=== PATIENT | female | born 1950 | race Caucasian/White ===

== ENCOUNTER 2024-09-30 21:41 | Emergency (ER) | payer MEDICARE, OTHER, SELFPAY ==
[2024-09-30 21:46] VITALS: BP 183/79
[2024-09-30 21:47] VITALS: BP 183/79
[2024-09-30 22:00] VITALS: BP 156/59
[2024-09-30 22:17] LABS: % Basophils 0.8 % (0-2); % Eosinophils 1.2 % (0-6); % Immature Granulocytes 0.2 % (0-0.5); % Lymphocytes 30.5 % (20.5-51.1); % Monocytes 10.4 % (1.7-9.3); % Neutrophils 56.9 % (42.2-75.2); Absolute Basophils 0.1 10^3/uL (0-0.2); Absolute Eosinophils 0.1 10^3/uL (0-0.7); Absolute Lymphocytes 1.9 10^3/uL (1.2-3.4); Absolute Monocytes 0.6 10^3/uL (0.1-0.6); Absolute Neutrophils 3.5 10^3/uL (1.4-6.5); Hematocrit 39.3 % (37.0-47.0); Hemoglobin 14.4 g/dL (12.0-16.0); Mean Corp Hgb Conc. 36.6 g/dL (33.0-37.0); Mean Corpuscular Volume 92.9 fL (81.0-99.0); Nucleated Red Blood Cells % 0 %; Platelet Count 147 10^3/uL (130-400); Red Blood Cell Count 4.23 10^6/uL (4.20-5.40); Red Cell Dist. Width 13.6 % (11.5-14.5); White Blood Cell Count 6.1 10^3/uL (4.8-10.8)
[2024-09-30 22:23] LABS: INR 1.08; PT 14.5 Sec (11.4-14.6)
[2024-09-30 22:24] LABS: APTT 31.7 Sec (23.4-35.0)
[2024-09-30 22:28] LABS: ALT (SGPT) 24 U/L (0-35); AST (SGOT) 30 U/L (14-36); Acetaminophen 81 ug/ml (10-30); Albumin 4.1 g/dl (3.5-5.0); Alkaline Phosphatase 30 U/L (38-126); Blood Urea Nitrogen 27 mg/dl (7-17); Calcium 10.7 mg/dl (8.4-10.2); Carbon Dioxide 23 mmol/L (22-30); Chloride 103 mmol/L (98-107); Glucose 139 mg/dl (70-99); Potassium 4.4 mmol/L (3.5-5.1); Sodium 136 mmol/L (135-145); Total Bilirubin 0.5 mg/dl (0.2-1.3); Total Protein 6.1 g/dl (6.3-8.2); eGFR 53.06
[2024-09-30 22:30] LABS: Alcohol None Detected
[2024-09-30 22:44] LABS: Salicylate < 1.0 mg/dl (2.0-20.0)
--- NOTE | 2024-09-30 22:58 | ED.GENMED ---
History of Present Illness
General
Chief Complaint: Overdose Intentional
Source: patient
Time Seen by Provider: 09/30/24 22:42
History of Present Illness
History of Present Illness:
74-year-old female presents to the emergency room after a suicide attempt. Patient states she took 20 tablets of 500 mg acetaminophen at 7 PM. She also took 1 tablet of her Risperdal and 1 tablet of lorazepam. Patient states this was a attempt to
kill herself. She is frustrated that her guardian has reduced her weekly allowance of velásquez. Patient denies any alcohol ingestion. Patient states she did have a previous suicide attempt many years ago. She did have a inpatient psychiatric
hospitalization about 7 or 8 years ago at some facility near [place]. Patient has some mild nausea. She did believe that this ingestion would be fatal. Patient actually called her visiting nurse to let her know that she might be when she
comes tomorrow so as to prevent her from being startled.
Past History
Past History
ED Past Medical History: Asthma, GERD, HTN, Hypercholesterolemia, NIDDM, Hypothyroidism and Other (Depression, R shoulder rotator cuff tare, Hiatel hernia, Kidney stones, Over active bladder, mild dementia, fractures, urinary tract infections,
kidney stones numbness and tingling of the arms and legs.)
ED Past Surgical History: Orthopedic (R total knee replacement, tibial plateau fracture, pins and screws for a scaphoid fracture.) and Other (Perforated bowel with resection.)
Social History
Tobacco: Non-smoker
Alcohol: None
Personal: Single
Living: alone
Employment: Disabled
Family History
Family History: Unable to obtain
Phy Exam
Physical Exam
Physical Exam:
General: Awake, Alert, Oriented X3. No acute distress.
Vitals: unremarkable
Head: Atraumatic
Eyes: Pupils equal, EOMI
Throat: Airway intact, no exudates
Neck: Trachea midline
Lungs: Clear and equal b/l
Heart: Regular rate, no murmurs
Abd: Soft, Nontender, No pulsatile mass
Neuro: Cranial nerves intact, muscle strength equal bilaterally, cerebellar exam normal
Skin: Warm, dry, no rash
Extremities: pulses equal b/l, no edema
Course
Orders/Labs/Results
Orders:
Orders
09/30/24 21:46
Electrocardiogram (*1) Urgent
Reason for Study: Other
Other Reason for Exam: overdose
EKG- Treatment ONCE
09/30/24 21:53
1:1 Observation - Suicide/ Violent Behavior As Directed
Crisis Consult Urgent
Reason for Consult: overdose
09/30/24 22:00
Acetaminophen Urgent
Alcohol Urgent
Complete Blood Count/With Diff Urgent
Comprehensive Metabolic Panel Urgent
PTT Urgent
Prothrombin Time Urgent
Salicylate Urgent
09/30/24 23:09
Tylenol [Acetaminophen] Urgent
Abnormal Lab Results
09/30/24 09/30/24
22:00 23:09
MCH 34.0 H pg
(27.0-31.0)
MPV 11.0 H fL
(7.4-10.4)
Monocytes % 10.4 H %
(1.7-9.3)
BUN 27 H mg/dl
(7-17)
Creatinine 1.1 H mg/dL
(0.6-1.0)
Glucose 139 H mg/dl
(70-99)
Calcium 10.7 H mg/dl
(8.4-10.2)
Alkaline Phosphatase 30 L U/L
(38-126)
Total Protein 6.1 L g/dl
(6.3-8.2)
Salicylates < 1.0 L mg/dl
(2.0-20.0)
Acetaminophen 81 H ug/ml 72 H ug/ml
(10-30) (10-30)
09/30/24 22:00
09/30/24 22:00
Vital Signs
Initial and Last Documented VS:
Initial Vital Signs
Pulse Resp BP Pulse Ox
77 19 183/79 96
09/30/24 21:46 09/30/24 21:46 09/30/24 21:46 09/30/24 21:46
Last Documented Vital Signs
Temp Pulse Resp BP Pulse Ox
98.6 F 70 18 130/68 97
09/30/24 21:47 09/30/24 23:45 09/30/24 23:45 09/30/24 23:00 10/01/24 00:15
MDM/Problems Addressed
Differential Diagnosis Includes:
Acetaminophen overdose, suicide attempt, depression, polypharmacy overdose
MDM/Problems Addressed:
Repeat Tylenol level has declined. She has not improved the treatment threshold. Otherwise she looks quite stable medically. She is clear for psychiatric treatment. Patient will be at 302.
*Pulse Oximetry
Patient hypoxic: no
*EKG
Interpreted by ED Provider?: Yes
Heart Rate: 70
Rate: normal
Rhythm: sinus
QRS Pattern: right bundle branch block and other (Left anterior fascicular block)
Ischemia: non-specific ST changes
*[employer] Service Technician Interpretation
Rate: normal
Interpretation: normal
Rhythm: sinus
*Critical Care Note
Total Time (30-74mins, 75-104mins- exclusive of procedures): Not Applicable
ED Attending Note
-
Portions of this chart may have been created with voice recognition software.� Occasional wrong word or��sound alike� substitutions may have occurred due to the inherent limitations of voice recognition software.
Discharge Plan
Departure
Patient Disposition: [facility]
Date of Disposition: 10/01/24
Time of Disposition: 01:46
Patient Status:: 302
Condition: Serious
Discharge Problem:
Suicide attempt, Intentional overdose, Acetaminophen overdose
Prescriptions:
No Action
ascorbic acid (vitamin C) [Vitamin C] 500 MG tablet
1,000 mg PO DAILY
multivitamin with folic acid [Tab-A-Lalit] 1 TABLET tablet
1 tab PO DAILY
metformin 500 MG tablet
500 mg PO BID
cholecalciferol (vitamin D3) [Vitamin D3] 1,000 UNIT tablet
1,000 unit PO HS
aspirin 81 MG tablet,delayed release (DR/EC)
81 mg PO DAILY
lorazepam 0.5 MG tablet
1 mg PO HS
atorvastatin 10 MG tablet
20 mg PO QPM
oxycodone-acetaminophen 5 MG/325 MG tablet
1 tab PO Q4HPRN PRN (Reason: pain)
pantoprazole 40 MG tablet,delayed release (DR/EC)
40 mg PO DAILY
lamotrigine 100 MG tablet
25 mg PO DAILY
oxybutynin chloride [Ditropan XL] 10 MG tablet extended release 24hr
10 mg PO DAILY
lisinopril 20 MG tablet
20 mg PO DAILY
olanzapine 5 MG tablet
15 mg PO HS
lorazepam 0.5 MG tablet
0.5 mg PO .2PM
sitagliptin phosphate [Januvia] 25 MG tablet
25 mg PO DAILY
Referrals:
UNKNOWN - PT DOES,NOT KNOW [Family Provider] -
Interventions
Interventions:
*Risk Screen - Suicide Last Done: 09/30/24 21:47
*General Assessment Last Done: 09/30/24 21:47
*Neglect/Abuse Screening Last Done: 09/30/24 21:47
*ED- Fall Risk Assessment Last Done: 09/30/24 21:54
*ED COVID-19 Vaccine History Last Done: 09/30/24 21:56
ED- Cardiac Assessment Last Done: 09/30/24 23:20
ED- Neurological Assessment Last Done: 09/30/24 23:20
ED-Psychological Assessment Last Done: 09/30/24 21:56
ED- Pulmonary Assessment Last Done: 09/30/24 23:20
Discharge Date and Time
Print Language: PAKISTANI
[2024-09-30 23:00] VITALS: BP 130/68
[2024-09-30 23:29] LABS: Acetaminophen 72 ug/ml (10-30)
[2024-10-01] VITALS (9 sets, daily range): BP systolic 126–161; BP diastolic 43–71
--- NOTE | 2024-10-01 03:28 | DOWNTIME ---
There was a [employer] Downtime on 10/01/2024 from 0200 to 10/02/2023 at 0318 . Downtime documentation of patient's care, including medication administrations, has been reconciled in the electronic record per guidelines. Refer to the
patient's paper chart under the miscellaneous tab to see printed paper medication records and downtime forms.
[2024-10-01 07:52] LABS: Glucose - Point of Care 142 mg/dl (70-99)
[2024-10-01] MEDS: GLUCOPHAGE 500 MG PO (08:15)
--- NOTE | 2024-10-01 11:29 | EDRN ---
Patient moved form ED room 26 to ED room 34. Patient stated that she currently has no thoughts of suicide. Patient stated that she attempted to kill herself because of her sister. Patient stated 'She has control of my money and told me that she's
only going to give me $43.00 every 2 weeks because she thinks I or my aide buy food that's not good for me. I buy some soda and potato chips.' Patient stated that she has discussed this with her care provider at [facility] and it has been
reported by her.
== END 2024-10-01 15:49 ==
LOC: EMR 21:41
PROVIDERS: Student in an Organized Health Care Education/Training Program; EMERGENCY PHYSICIAN Emergency Medicine
DX: T39.1X2A Poisoning by 4-Aminophenol derivatives, intentional self-harm, initial encounter (principal); T14.91XA Suicide attempt, initial encounter; Y92.9 Unspecified place or not applicable; J45.909 Unspecified asthma, uncomplicated; K21.9 Gastro-esophageal reflux disease without esophagitis; I10 Essential (primary) hypertension; E78.00 Pure hypercholesterolemia, unspecified; E11.9 Type 2 diabetes mellitus without complications; E03.9 Hypothyroidism, unspecified; F03.A11 Unspecified dementia, mild, with agitation; Z87.440 Personal history of urinary (tract) infections; Z87.442 Personal history of urinary calculi; Z91.51 Personal history of suicidal behavior; Z96.651 Presence of right artificial knee joint
CPT/HCPCS: 99283; 80053; 80143; 80179; 82077; 82962; 85025; 85610; 85730; 93005